=== PATIENT | female | born 1945 | race Caucasian/White ===

== ENCOUNTER 2016-08-11 11:35 | Observation (INO) | payer MEDICARE, OTHER ==
--- NOTE | 2016-08-11 12:33 | ER Document Report ---
ED Medical Screen (RME) - General Chief Complaint: Numbness of Face Stated Complaint: RIGHT SIDE NUMBNESS Mode of Arrival: Ambulatory Information source: Patient Notes: This is a 71-year-old female with a history of hypertension who was sent to the ER by her primary care physician (Dr. Sage) for concern of TIA. Patient states that at 7:30 this morning while walking down the hallway in her house, she developed sudden onset of tingling to the right side of her face, her right upper extremity, in her right lower extremity. She also felt that the right side of her face felt heavy and numb. She had no headache, chest pain. She initially presented to her primary care office and then was referred to the ER. She states that her symptoms have completely resolved. She thinks they lasted for 1-2 hours. At this point she is back to her baseline. No prior history of TIA/CVA. In triage she is alert and oriented 4. She has no facial asymmetry. 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 She has good finger to nose and normal gait. I have greeted and performed a rapid initial assessment of this patient. A comprehensive ED assessment and evaluation of the patient, analysis of test results and completion of the medical decision making process will be conducted by additional ED providers. TRAVEL OUTSIDE OF THE [place] IN LAST 30 DAYS: No - Related Data Allergies/Adverse Reactions: codeine [Codeine] Allergy (Severe, Verified 10/14/10 10:39) Penicillins Allergy (Severe, Verified 10/14/10 10:38) Sulfa (Sulfonamide Antibiotics) Allergy (Severe, Verified 10/14/10 10:39) Home Medications: Current Home Medications Cetirizine HCl [Zyrtec 10 mg Tablet] 10 mg PO QHS 08/11/16 [History] Glimepiride [Amaryl 1 mg Tablet] 1 mg PO DAILY 08/11/16 [History] Lisinopril/Hydrochlorothiazide [Lisinopril-Hctz 20-12.5 mg Tab] 1 each PO DAILY 08/11/16 [History] Past Medical History - Past Medical History Cardiac Medical History: Reports: Hx Hypertension Denies: Hx Heart Attack Pulmonary Medical History: Denies: Hx Asthma Neurological Medical History: Denies: Hx Cerebrovascular Accident, Hx Seizures Renal/ Medical History: Denies: Hx Peritoneal Dialysis GI Medical History: Denies: Hx Hepatitis, Hx Hiatal Hernia, Hx Ulcer Infectious Medical History: Denies: Hx Hepatitis Past Surgical History: Reports: Hx Hysterectomy. Denies: Hx Mastectomy, Hx Open Heart Surgery, Hx Pacemaker Physical Exam - Vital signs Vitals: Temp Pulse Resp BP Pulse Ox 98.2 F 73 16 185/82 H 99 08/11/16 11:38 08/11/16 11:38 08/11/16 11:38 08/11/16 11:38 08/11/16 11:38 Course - Vital Signs Vital signs: Temp Pulse Resp BP Pulse Ox 98.2 F 74 18 152/74 H 99 08/11/16 11:38 08/11/16 18:00 08/11/16 18:01 08/11/16 18:01 08/11/16 18:01 - Laboratory Result Diagrams: 08/11/16 12:35 08/11/16 12:35 Laboratory results interpreted by me: 08/11/16 08/11/16 12:35 15:00 Sodium 146.9 H Calcium 10.8 H Creatine Kinase 149 H Total Protein 8.3 H Urine Ketones TRACE H Doctor's Discharge - Discharge Clinical Impression: Transient ischemic attack Condition: Stable Disposition: ADMITTED INPATIENT
--- NOTE | 2016-08-11 12:55 | ER Document Report ---
ED Neuro Symptoms/Deficit - General Time seen by provider: 12:45 Mode of Arrival: Ambulatory Information source: Patient TRAVEL OUTSIDE OF THE [place] IN LAST 30 DAYS: No - HPI Patient complains to provider of: Weakness, Other - numbness Onset: This morning - see HPI note Awoke with symptoms: No Duration: Better Baseline Cognitive: Alert, oriented X 3 Baseline Gait: Walks w/o assistance New weakness: RUE, RLE, R facial Similar symptoms previously: No Recently seen / treated by doctor: No <DALY TALBOT - Last Filed: 08/11/16 13:03> <BOGDAN LANDA - Last Filed: 08/11/16 14:55> - General Chief Complaint: Numbness of Face Stated Complaint: RIGHT SIDE NUMBNESS Notes: Patient is a 71 year old female presenting to the emergency department for numbness and weakness to her right side. Patient states she was walking in the hallway this morning around 7:30 when she started feeling very weak and numb. Patient states her right side of her body including her face, arm, and leg all felt weak and numb. Patient states this lasted for about 5-10 minutes and then slightly eased off. Patient states it was still faintly present for 1-[address] Sage in the office today around 9:30 and he recommended she go to the emergency department for a work up. Patient states that she has had previous numbness in her fingers and toes bilaterally from neuropathy but this numbness was different. Patient is allergic to codeine, penicillins, and sulfa drugs. Patient states her numbness and symptoms are gone completely now. Patient has a history of type 2 diabetes mellitus, hypertension, arthritis, hypercholesterolemia, and neuropathy. (DALY TALBOT) The patient is not a TPA candidate, as her symptoms were several hours ago, and have resolved completely. (BOGDAN LANDA) - Related Data Allergies/Adverse Reactions: codeine [Codeine] Allergy (Severe, Verified 10/14/10 10:39) Penicillins Allergy (Severe, Verified 10/14/10 10:38) Sulfa (Sulfonamide Antibiotics) Allergy (Severe, Verified 10/14/10 10:39) Past Medical History - General Information source: Patient - Social History Smoking Status: Unknown if Ever Smoked Family History: None - Past Medical History Cardiac Medical History: Reports: Hx Hypertension Past Surgical History: Reports: Hx Hysterectomy <DALY TALBOT - Last Filed: 08/11/16 13:03> Review of Systems - Review of Systems Constitutional: No symptoms reported EENT: No symptoms reported Cardiovascular: No symptoms reported Respiratory: No symptoms reported Gastrointestinal: No symptoms reported Genitourinary: No symptoms reported Female Genitourinary: No symptoms reported Musculoskeletal: No symptoms reported Skin: No symptoms reported Hematologic/Lymphatic: No symptoms reported Neurological/Psychological: See HPI -: Yes All other systems reviewed and negative <DALY TALBOT - Last Filed: 08/11/16 13:03> Physical Exam - Vital signs Interpretation: Hypertensive - General General appearance: Appears well, Alert In distress: Mild - HEENT Head: Normocephalic, Atraumatic Eyes: Normal Pupils: PERRL Mucous membranes: Moist Neck: No: Carotid bruit - Respiratory Respiratory status: No respiratory distress Chest status: Nontender Breath sounds: Normal Chest palpation: Normal - Cardiovascular Rhythm: Regular Heart sounds: Normal auscultation Murmur: No - Abdominal Inspection: Normal Distension: No distension Bowel sounds: Normal Tenderness: Nontender Organomegaly: No organomegaly - Back Back: Normal, Nontender - Extremities General upper extremity: Normal inspection, Normal ROM, Normal strength General lower extremity: Normal inspection, Normal ROM, Normal strength - Neurological Neuro grossly intact: Yes Cognition: Normal - no focal weakness Orientation: AAOx4 Curtis Coma Scale Eye Opening: Spontaneous [place] Coma Scale Verbal: Oriented [place] Coma Scale Motor: Obeys Commands [place] Coma Scale Total: 15 Speech: Normal Additional motor exam normals: Equal frame opener Sensory: Normal - Psychological Associated symptoms: Normal affect, Normal mood - Skin Skin Temperature: Warm Skin Moisture: Dry <DALY TALBOT - Last Filed: 08/11/16 13:03> <BOGDAN LANDA - Last Filed: 08/11/16 14:55> - Vital signs Vitals: Temp Pulse Resp BP Pulse Ox 98.2 F 73 16 185/82 H 99 08/11/16 11:38 08/11/16 11:38 08/11/16 11:38 08/11/16 11:38 08/11/16 11:38 Course - Laboratory Result Diagrams: 08/11/16 12:35 08/11/16 12:35 <DALY TALBOT - Last Filed: 08/11/16 13:03> - Laboratory Result Diagrams: 08/11/16 12:35 08/11/16 12:35 - Diagnostic Test Radiology reviewed: Image reviewed, Reports reviewed - Chest x-ray and CT of the brain are unremarkable - EKG Interpretation by Me EKG shows normal: Sinus rhythm, [place], Intervals, ST-T Waves. abnormal: QRS Complexes Rate: Normal - 67 Rhythm: NSR [place]/QRS: RBBB, LPHB/LPFB When compared to previous EKG there are: Previous EKG unavailable - Consults Dr. Alexandra Time consulted: 14:45 Consulted provider: will come to ER <BOGDAN LANDA - Last Filed: 08/11/16 14:55> - Vital Signs Vital signs: Temp Pulse Resp BP Pulse Ox 98.2 F 72 20 166/65 H 99 08/11/16 11:38 08/11/16 14:52 08/11/16 14:52 08/11/16 14:52 08/11/16 14:52 - Laboratory Laboratory results interpreted by me: 08/11/16 12:35 Sodium 146.9 H Calcium 10.8 H Creatine Kinase 149 H Total Protein 8.3 H Discharge <DALY TALBOT - Last Filed: 08/11/16 13:03> - Discharge Admitting Provider: Hospitalist Unit Admitted: IMCU <BOGDAN LANDA - Last Filed: 08/11/16 14:55> - Discharge Clinical Impression: Transient ischemic attack Qualifiers: Transient cerebral ischemia type: unspecified Qualified Code(s): G45.9 - Transient cerebral ischemic attack, unspecified Condition: Stable Disposition: ADMITTED INPATIENT Referrals: MEGAN SAGE MD [Primary Care Provider] - Follow up as needed Scribe Attestation: 08/11/16 14:55 I personally performed the services described in the documentation, reviewed and edited the documentation which was dictated to the scribe in my presence, and it accurately records my words and actions. (BOGDAN LANDA) Scribe Documentation - Scribe Written by Scribe:: Daly Talbot 08/11/16 13:40 acting as scribe for :: Robert <DALY TALBOT - Last Filed: 08/11/16 13:03>
[2016-08-11 12:59] LABS: ABSOLUTE EOSINOPHILS # (AUTO) 0.1 10^3/uL (0.0-0.6); ABSOLUTE LYMPHOCYTES (AUTO) 1.9 10^3/uL (0.5-4.7); ABSOLUTE MONOCYTES (AUTO) 0.5 10^3/uL (0.1-1.4); ABSOLUTE NEUT (AUTO) 3.5 10^3/uL (1.7-8.2); BASOPHILS % (AUTO) 0.7 % (0-2); EOSINOPHILS % (AUTO) 0.8 % (0-6); HEMATOCRIT 39.9 % (36.0-47.0); HEMOGLOBIN 13.5 g/dL (12.0-15.5); HGB HCT DIFFERENCE 0.6; LYMPHOCYTES % (AUTO) 31.7 % (13-45); MEAN CORPUSCULAR HGB CONC 33.7 g/dL (32.0-36.0); MEAN CORPUSCULAR VOLUME 95 fl (80-97); PROTHROMBIN TIME 12.3 SEC (11.4-15.4); RED BLOOD COUNT 4.21 10^6/uL (3.72-5.28); SEGMENTED NEUTROPHILS % (AUTO) 57.8 % (42-78); WHITE BLOOD COUNT 6.1 10^3/uL (4.0-10.5)
[2016-08-11 13:00] LABS: PARTIAL THROMBOPLASTIN TIME 32.4 SEC (23.5-35.8)
[2016-08-11 13:23] LABS: ALANINE AMINOTRANSFERASE 39 U/L (9-52); ALBUMIN 4.5 g/dL (3.5-5.0); ALKALINE PHOSPHATASE 88 U/L (38-126); ANION GAP 13 (5-19); ASPARTATE AMINO TRANSFERASE 28 U/L (14-36); BILIRUBIN,DIRECT 0.4 mg/dL (0.0-0.4); BILIRUBIN,TOTAL 0.5 mg/dL (0.2-1.3); BLOOD UREA NITROGEN 18 mg/dL (7-20); CALCIUM 10.8 mg/dL (8.4-10.2); CARBON DIOXIDE 29 mmol/L (22-30); CHLORIDE 105 mmol/L (98-107); CREATINE KINASE 149 U/L (30-135); CREATININE RESULT 0.65 mg/dL (0.52-1.25); GLUCOSE 96 mg/dL (75-110); POTASSIUM 3.9 mmol/L (3.6-5.0); SODIUM 146.9 mmol/L (137-145); TOTAL PROTEIN 8.3 g/dL (6.3-8.2)
[2016-08-11 13:35] LABS: CREATINE KINASE MB 1.53 ng/mL (<4.55)
[2016-08-11 13:38] LABS: TROPONIN I < 0.012 ng/mL
[2016-08-11 15:11] LABS: APPEARANCE,URINE CLEAR; BILIRUBIN,URINE NEGATIVE (NEGATIVE); GLUCOSE, URINE NEGATIVE (NEGATIVE); KETONES,URINE TRACE mg/dL (NEGATIVE); LEUKOCYTE ESTERASE,URINE NEGATIVE (NEGATIVE); NITRITE,URINE NEGATIVE (NEGATIVE); PROTEIN,URINE NEGATIVE (NEGATIVE); URINE SPECIFIC GRAVITY 1.005; UROBILINOGEN,URINE NEGATIVE mg/dL (<2.0)
[2016-08-11] MEDS ORDERED: ENOXAPARIN SODIUM INJ 40 MG/0.4 ML DISP.SYRIN SUBCUT ONE (19:30)
[2016-08-11] MEDS ORDERED: DIAZEPAM 5 MG TABLET PO ONE (20:15)
--- NOTE | 2016-08-11 21:14 | EKG REPORT ---
SEVERITY:- ABNORMAL ECG - SINUS RHYTHM RBBB AND LPFB : Confirmed by: Cecily Kim 11-Aug-2016 21:14:25
[2016-08-11] MEDS ORDERED: ATORVASTATIN CALCIUM 80 MG TABLET PO ONE (22:00)
[2016-08-11] MEDS ORDERED: ASPIRIN 81 MG TABLET, CHEWABLE PO ONE (22:00)
[2016-08-11] MEDS ORDERED: CETIRIZINE 10 MG TABLET PO SCH (22:00)
[2016-08-12 04:41] LABS: CHOLESTEROL 153.96 mg/dL (0-200); Direct HDL 47 mg/dL (>40); TRIGLYCERIDES 175 mg/dL (<150)
[2016-08-12 04:51] LABS: DIRECT LDL 69 mg/dL (<100)
--- NOTE | 2016-08-12 07:58 | PDOC H&P ---
History of Present Illness Admission Date/PCP: 08/11/16 17:55 MEGAN VENCES MD Patient complains of: numbness tingling right side body History of Present Illness: KALYN DUBON is a 71 year old female With a known history of hypertension diabetes hyperlipidemia presented to the ED with paresthesias right side of face, right upper and right lower extremities The episode lasted about an hour and resolved Patient presented to the ED asymptomatic She was subsequently admitted with the diagnosis of TIA for further evaluation and care Past Medical History Cardiac Medical History: Reports: Hyperlipidema, Hypertension Denies: Myocardial Infarction Pulmonary Medical History: Denies: Asthma Neurological Medical History: Denies: Seizures Endocrine Medical History: Reports: Diabetes Mellitus Type 2 GI Medical History: Denies: Hepatitis, Hiatal Hernia Hematology: Reports: Anemia Denies: Sickle Cell Disease Past Surgical History Past Surgical History: Reports: Hysterectomy Denies: Amputation, Mastectomy, Pacemaker Social History Smoking Status: Never Smoker Frequency of Alcohol Use: None Hx Recreational Drug Use: No Drugs: None Hx Prescription Drug Abuse: No - Advance Directive Resuscitation Status: Full Code Surrogate healthcare decision maker:: Family History Family History: None Parental Family History Reviewed: Yes Children Family History Reviewed: Yes Sibling(s) Family History Reviewed.: Yes Medication/Allergy Home Medications: Meloxicam [Mobic 7.5 Mg Tablet] 7.5 mg PO DAILY 08/17/11 Simvastatin [Zocor] 20 mg PO QHS 08/17/11 Cetirizine HCl [Zyrtec 10 mg Tablet] 10 mg PO QHS 08/11/16 Glimepiride [Amaryl 1 mg Tablet] 1 mg PO DAILY 08/11/16 Lisinopril/Hydrochlorothiazide [Lisinopril-Hctz 20-12.5 mg Tab] 1 each PO DAILY 08/11/16 Allergies/Adverse Reactions: codeine [Codeine] Allergy (Severe, Verified 10/14/10 10:39) Penicillins Allergy (Severe, Verified 10/14/10 10:38) Sulfa (Sulfonamide Antibiotics) Allergy (Severe, Verified 10/14/10 10:39) Review of Systems Constitutional: ABSENT: chills, fever(s), headache(s), weight gain, weight loss Eyes: ABSENT: visual disturbances Ears: ABSENT: hearing changes Cardiovascular: ABSENT: chest pain, dyspnea on exertion, edema, orthropnea, palpitations Respiratory: ABSENT: cough, hemoptysis Gastrointestinal: ABSENT: abdominal pain, constipation, diarrhea, hematemesis, hematochezia, nausea, vomiting Genitourinary: ABSENT: dysuria, hematuria Musculoskeletal: ABSENT: joint swelling Integumentary: ABSENT: rash, wounds Neurological: PRESENT: as per HPI, numbness, paresthesias, tingling. ABSENT: abnormal gait, abnormal speech, confusion, dizziness, focal weakness, syncope Psychiatric: ABSENT: anxiety, depression, homidical ideation, suicidal ideation Endocrine: ABSENT: cold intolerance, heat intolerance, polydipsia, polyuria Hematologic/Lymphatic: ABSENT: easy bleeding, easy bruising Physical Exam Vital Signs: Temp Pulse Resp BP Pulse Ox 97.9 F 83 16 122/70 93 08/12/16 03:27 08/12/16 04:00 08/12/16 04:00 08/12/16 04:00 08/12/16 04:00 Intake & Output 08/11/16 08/12/16 08/13/16 00:59 00:59 00:59 Intake Total 200 25 Balance 200 25 Weight 58.4 kg 58.4 kg General appearance: PRESENT: no acute distress, well-developed, well-nourished Head exam: PRESENT: atraumatic, normocephalic Eye exam: PRESENT: conjunctiva pink, EOMI, PERRLA. ABSENT: scleral icterus Ear exam: PRESENT: normal external ear exam Mouth exam: PRESENT: moist, tongue midline Neck exam: ABSENT: carotid bruit, JVD, lymphadenopathy, thyromegaly Respiratory exam: PRESENT: clear to auscultation joyce. ABSENT: rales, rhonchi, wheezes Cardiovascular exam: PRESENT: RRR. ABSENT: diastolic murmur, rubs, systolic murmur Pulses: PRESENT: normal dorsalis pedis pul Vascular exam: PRESENT: normal capillary refill GI/Abdominal exam: PRESENT: normal bowel sounds, soft. ABSENT: distended, guarding, mass, organolmegaly, rebound, tenderness Rectal exam: PRESENT: deferred Extremities exam: PRESENT: full ROM. ABSENT: calf tenderness, clubbing, pedal edema Neurological exam: PRESENT: alert, awake, oriented to person, oriented to place , oriented to time, oriented to situation, CN II-XII grossly intact. ABSENT: motor sensory deficit Psychiatric exam: PRESENT: appropriate affect, normal mood. ABSENT: homicidal ideation, suicidal ideation Skin exam: PRESENT: dry, intact, warm. ABSENT: cyanosis, rash Results Laboratory Results: 08/12/16 08/12/16 04:01 04:01 Triglycerides 175 H Cholesterol 153.96 LDL Cholesterol Direct 69 VLDL Cholesterol 35.0 H HDL Cholesterol 47 TSH 3.35 Labs- All tests 24 hr 08/11/16 08/11/16 08/11/16 12:35 12:35 12:35 WBC 6.1 RBC 4.21 Hgb 13.5 Hct 39.9 MCV 95 MCH 32.0 MCHC 33.7 RDW 13.0 Plt Count 243 Seg Neutrophils % 57.8 Lymphocytes % 31.7 Monocytes % 9.0 Eosinophils % 0.8 Basophils % 0.7 Absolute Neutrophils 3.5 Absolute Lymphocytes 1.9 Absolute Monocytes 0.5 Absolute Eosinophils 0.1 Absolute Basophils 0.0 PT 12.3 INR 0.89 APTT 32.4 Sodium 146.9 H Potassium 3.9 Chloride 105 Carbon Dioxide 29 Anion Gap 13 BUN 18 Creatinine 0.65 Est GFR ( Amer) > 60 Est GFR (Non-Af Amer) > 60 Glucose 96 Hemoglobin A1c % Calcium 10.8 H Total Bilirubin 0.5 Direct Bilirubin 0.4 Indirect Bilirubin Not Reportable Neonat Total Bilirubin Not Reportable AST 28 ALT 39 Alkaline Phosphatase 88 Creatine Kinase 149 H CK-MB (CK-2) Troponin I Total Protein 8.3 H Albumin 4.5 Triglycerides Cholesterol LDL Cholesterol Direct VLDL Cholesterol HDL Cholesterol TSH Urine Color Urine Appearance Urine pH Ur Specific [place] Urine Protein Urine Glucose (UA) Urine Ketones Urine Blood Urine Nitrite Urine Bilirubin Urine Urobilinogen Ur Leukocyte Esterase Urine WBC (Auto) Squamous Epi Cells Auto Urine Mucus (Auto) Urine Ascorbic Acid 08/11/16 08/11/16 08/12/16 12:35 15:00 04:01 WBC RBC Hgb Hct MCV MCH MCHC RDW Plt Count Seg Neutrophils % Lymphocytes % Monocytes % Eosinophils % Basophils % Absolute Neutrophils Absolute Lymphocytes Absolute Monocytes Absolute Eosinophils Absolute Basophils PT INR APTT Sodium Potassium Chloride Carbon Dioxide Anion Gap BUN Creatinine Est GFR ( Amer) Est GFR (Non-Af Amer) Glucose Hemoglobin A1c % 5.3 Calcium Total Bilirubin Direct Bilirubin Indirect Bilirubin Neonat Total Bilirubin AST ALT Alkaline Phosphatase Creatine Kinase CK-MB (CK-2) 1.53 Troponin I < 0.012 Total Protein Albumin Triglycerides Cholesterol LDL Cholesterol Direct VLDL Cholesterol HDL Cholesterol TSH Urine Color STRAW Urine Appearance CLEAR Urine pH 7.0 Ur Specific [place] 1.005 Urine Protein NEGATIVE Urine Glucose (UA) NEGATIVE Urine Ketones TRACE H Urine Blood NEGATIVE Urine Nitrite NEGATIVE Urine Bilirubin NEGATIVE Urine Urobilinogen NEGATIVE Ur Leukocyte Esterase NEGATIVE Urine WBC (Auto) 1 Squamous Epi Cells Auto <1 Urine Mucus (Auto) RARE Urine Ascorbic Acid NEGATIVE 08/12/16 08/12/16 04:01 04:01 WBC RBC Hgb Hct MCV MCH MCHC RDW Plt Count Seg Neutrophils % Lymphocytes % Monocytes % Eosinophils % Basophils % Absolute Neutrophils Absolute Lymphocytes Absolute Monocytes Absolute Eosinophils Absolute Basophils PT INR APTT Sodium Potassium Chloride Carbon Dioxide Anion Gap BUN Creatinine Est GFR ( Amer) Est GFR (Non-Af Amer) Glucose Hemoglobin A1c % Calcium Total Bilirubin Direct Bilirubin Indirect Bilirubin Neonat Total Bilirubin AST ALT Alkaline Phosphatase Creatine Kinase CK-MB (CK-2) Troponin I Total Protein Albumin Triglycerides 175 H Cholesterol 153.96 LDL Cholesterol Direct 69 VLDL Cholesterol 35.0 H HDL Cholesterol 47 TSH 3.35 Urine Color Urine Appearance Urine pH Ur Specific [place] Urine Protein Urine Glucose (UA) Urine Ketones Urine Blood Urine Nitrite Urine Bilirubin Urine Urobilinogen Ur Leukocyte Esterase Urine WBC (Auto) Squamous Epi Cells Auto Urine Mucus (Auto) Urine Ascorbic Acid EKG Comments: NSR RBBB LPFB Impressions: Chest X-Ray 08/11/16 12:28 IMPRESSION: NO ACUTE RADIOGRAPHIC FINDING IN THE CHEST. Head CT 08/11/16 12:28 IMPRESSION: NORMAL BRAIN CT WITHOUT CONTRAST. Head MRI 08/11/16 17:58 IMPRESSION: Negative for acute or sub-acute infarction. Assessment & Plan - Diagnosis (1) Hypertension Qualifiers: Hypertension type: essential hypertension Qualified Code(s): I10 - Essential (primary) hypertension Is this a current diagnosis for this admission?: Yes (2) Hyperlipidemia Qualifiers: Hyperlipidemia type: unspecified Qualified Code(s): E78.5 - Hyperlipidemia, unspecified Is this a current diagnosis for this admission?: Yes (3) Transient ischemic attack Qualifiers: Transient cerebral ischemia type: unspecified Qualified Code(s): G45.9 - Transient cerebral ischemic attack, unspecified Is this a current diagnosis for this admission?: Yes - Time Time Spent with patient: We will admit the patient for observation to [facility] An MRI of the brain will be done tonight We will complete the workup with carotid ultrasound and echocardiogram Patient will be monitored The patient aspirin and Lipitor She will likely be discharged in a.m. Time Spent: 50 to 70 Minutes
[2016-08-12] MEDS ORDERED: ENOXAPARIN SODIUM INJ 40 MG/0.4 ML DISP.SYRIN SUBCUT SCH (08:00)
[2016-08-12] MEDS ORDERED: GLIMEPIRIDE 1 MG TABLET PO SCH (10:00)
[2016-08-12 11:46] VITALS: BP 152/72
--- NOTE | 2016-08-12 14:38 | PDOC DISCHARGE SUMMARY ---
General - Admit/Disc Date/PCP Admission Date/Primary Care Provider: 08/11/16 17:55 MEGAN VENCES MD Discharge Date: 08/12/16 - Discharge Diagnosis (1) Hypertension Is this a current diagnosis for this admission?: Yes (2) Hyperlipidemia Is this a current diagnosis for this admission?: Yes (3) Transient ischemic attack Is this a current diagnosis for this admission?: Yes - Additional Information Resuscitation Status: Full Code Discharge Activity: Activity As Tolerated Home Medications: Meloxicam [Mobic 7.5 mg Tablet] 7.5 mg PO DAILY 08/17/11 Simvastatin [Zocor 20 mg Tablet] 20 mg PO QHS 08/17/11 Cetirizine HCl [Zyrtec 10 mg Tablet] 10 mg PO QHS 08/11/16 Glimepiride [Amaryl 1 mg Tablet] 1 mg PO DAILY 08/11/16 Lisinopril/Hydrochlorothiazide [Lisinopril-Hctz 20-12.5 mg Tab] 1 each PO DAILY 08/11/16 Aspirin [Ecotrin 81 mg EC Tablet] 81 mg PO DAILY #30 tabec 08/12/16 History of Present Illness Patient complains of: parethesias History of Present Illness: KALYN DUBON is a 71 year old female With a known history of hypertension diabetes hyperlipidemia presented to the ED with paresthesias right side of face, right upper and right lower extremities The episode lasted about an hour and resolved Patient presented to the ED asymptomatic She was subsequently admitted with the diagnosis of TIA for further evaluation and care Hospital Course Hospital Course: Patient was admitted with the diagnosis of TIA and-like episode she was a monitored in the telemetry unit did not have any cord cardiac arrhythmia Cardiac enzymes were negative Workup including CT brain , MRI brain, carotid ultrasound was essentially negative An echocardiogram was performed results are not available at time of discharge Patient remained totally asymptomatic She was discharged on Ecotrin 81 mg daily to be added to her prior medications Physical Exam Vital Signs: Temp Pulse Resp BP Pulse Ox 97.8 F 73 16 152/72 H 98 08/12/16 11:07 08/12/16 11:07 08/12/16 11:07 08/12/16 11:07 08/12/16 11:07 Intake & Output 08/11/16 08/12/16 08/13/16 00:59 00:59 00:59 Intake Total 200 33 Balance 200 33 Weight 58.4 kg 58.4 kg General appearance: PRESENT: no acute distress, well-developed, well-nourished Head exam: PRESENT: atraumatic, normocephalic Eye exam: PRESENT: conjunctiva pink, EOMI, PERRLA. ABSENT: scleral icterus Ear exam: PRESENT: normal external ear exam Mouth exam: PRESENT: moist, tongue midline Neck exam: ABSENT: carotid bruit, JVD, lymphadenopathy, thyromegaly Respiratory exam: PRESENT: clear to auscultation joyce. ABSENT: rales, rhonchi, wheezes Cardiovascular exam: PRESENT: RRR. ABSENT: diastolic murmur, rubs, systolic murmur Pulses: PRESENT: normal dorsalis pedis pul Vascular exam: PRESENT: normal capillary refill GI/Abdominal exam: PRESENT: normal bowel sounds, soft. ABSENT: distended, guarding, mass, organolmegaly, rebound, tenderness Rectal exam: PRESENT: deferred Extremities exam: PRESENT: full ROM. ABSENT: calf tenderness, clubbing, pedal edema Neurological exam: PRESENT: alert, awake, oriented to person, oriented to place , oriented to time, oriented to situation, CN II-XII grossly intact. ABSENT: motor sensory deficit Psychiatric exam: PRESENT: appropriate affect, normal mood. ABSENT: homicidal ideation, suicidal ideation Skin exam: PRESENT: dry, intact, warm. ABSENT: cyanosis, rash Results Laboratory Results: 08/12/16 08/12/16 04:01 04:01 Triglycerides 175 H Cholesterol 153.96 LDL Cholesterol Direct 69 VLDL Cholesterol 35.0 H HDL Cholesterol 47 TSH 3.35 08/11/16 12:35 08/11/16 12:35 MCV 95 fl (80-97) 08/11/16 12:35 MCH 32.0 pg (27.0-33.4) 08/11/16 12:35 MCHC 33.7 g/dL (32.0-36.0) 08/11/16 12:35 RDW 13.0 % (11.5-14.0) 08/11/16 12:35 Seg Neutrophils % 57.8 % (42-78) 08/11/16 12:35 Lymphocytes % 31.7 % (13-45) 08/11/16 12:35 Monocytes % 9.0 % (3-13) 08/11/16 12:35 Eosinophils % 0.8 % (0-6) 08/11/16 12:35 Basophils % 0.7 % (0-2) 08/11/16 12:35 Absolute Neutrophils 3.5 10^3/uL (1.7-8.2) 08/11/16 12:35 Absolute Lymphocytes 1.9 10^3/uL (0.5-4.7) 08/11/16 12:35 Absolute Monocytes 0.5 10^3/uL (0.1-1.4) 08/11/16 12:35 Absolute Eosinophils 0.1 10^3/uL (0.0-0.6) 08/11/16 12:35 Absolute Basophils 0.0 10^3/uL (0.0-0.2) 08/11/16 12:35 Chloride 105 mmol/L (98-107) 08/11/16 12:35 Carbon Dioxide 29 mmol/L (22-30) 08/11/16 12:35 Anion Gap 13 (5-19) 08/11/16 12:35 Est GFR ( Amer) > 60 (>60) 08/11/16 12:35 Est GFR (Non-Af Amer) > 60 (>60) 08/11/16 12:35 Glucose 96 mg/dL (75-110) 08/11/16 12:35 Calcium 10.8 mg/dL (8.4-10.2) H 08/11/16 12:35 Total Bilirubin 0.5 mg/dL (0.2-1.3) 08/11/16 12:35 AST 28 U/L (14-36) 08/11/16 12:35 ALT 39 U/L (9-52) 08/11/16 12:35 Alkaline Phosphatase 88 U/L (38-126) 08/11/16 12:35 Total Protein 8.3 g/dL (6.3-8.2) H 08/11/16 12:35 Albumin 4.5 g/dL (3.5-5.0) 08/11/16 12:35 Triglycerides 175 mg/dL (<150) H 08/12/16 04:01 Cholesterol 153.96 mg/dL (0-200) 08/12/16 04:01 LDL Cholesterol Direct 69 mg/dL (<100) 08/12/16 04:01 VLDL Cholesterol 35.0 mg/dL (10-31) H 08/12/16 04:01 HDL Cholesterol 47 mg/dL (>40) 08/12/16 04:01 TSH 3.35 uIU/mL (0.47-4.68) 08/12/16 04:01 Urine Color STRAW 08/11/16 15:00 Urine Appearance CLEAR 08/11/16 15:00 Urine pH 7.0 (5.0-9.0) 08/11/16 15:00 Ur Specific [place] 1.005 08/11/16 15:00 Urine Protein NEGATIVE mg/dL (NEGATIVE) 08/11/16 15:00 Urine Glucose (UA) NEGATIVE mg/dL (NEGATIVE) 08/11/16 15:00 Urine Ketones TRACE mg/dL (NEGATIVE) H 08/11/16 15:00 Urine Blood NEGATIVE (NEGATIVE) 08/11/16 15:00 Urine Nitrite NEGATIVE (NEGATIVE) 08/11/16 15:00 Ur Leukocyte Esterase NEGATIVE (NEGATIVE) 08/11/16 15:00 Urine WBC (Auto) 1 /HPF 08/11/16 15:00 08/11/16 08/11/16 12:35 12:35 Creatine Kinase 149 H CK-MB (CK-2) 1.53 Troponin I < 0.012 EKG Comments: Sinus rhythm Right bundle branch block Left posterior fascicular block Impressions: Chest X-Ray 08/11/16 12:28 IMPRESSION: NO ACUTE RADIOGRAPHIC FINDING IN THE CHEST. Head CT 08/11/16 12:28 IMPRESSION: NORMAL BRAIN CT WITHOUT CONTRAST. Head MRI 08/11/16 17:58 IMPRESSION: Negative for acute or sub-acute infarction. Carotid Doppler Study 08/12/16 00:00 IMPRESSION: NO HEMODYNAMICALLY SIGNIFICANT STENOSIS. Plan Discharge Plan: Patient was discharged home to follow-up with her primary care physician Time Spent: Less than 30 Minutes
--- NOTE | 2016-08-12 18:19 | XCELERA REPORT ---
[address] [address] Transthoracic Echocardiogram Report Name: KALYN DUBON Age: 71 yrs Gender: Female : 1945 Patient Status: Inpatient Patient Location: [id number]\S\315\S\A Study Date: 08/12/2016 09:47 AM Height: 60 in Weight: 128 lb BSA: 1.5 m2 Procedure: A two-dimensional transthoracic echocardiogram with color flow and Doppler was performed. The study was technically limited with all images being suboptimal in quality. The study was technically difficult with many images being suboptimal in quality. Reason For Study: TIA History: TIA. Ordering Physician: LAKISHA GOMES Performed By: Sofía Stovall Interpretation Summary There is no obvious cardiac source of embolus noted on this transthoracic echocardiogram. Follow-up with a LETI is suggested if cardiac source is still suspected. The left ventricle is normal in size. There is normal left ventricular wall thickness. LV EF is > than 60% Left ventricular systolic function is normal. Doppler measurements suggest impaired left ventricular relaxation, which is associated with grade I/IV or mild diastolic dysfunction The left ventricular wall motion is normal. There is no thrombus. The right ventricle is not well visualized secondary to technical limitations The right atrium is normal. The left atrial size is normal. The interatrial septum is intact with no evidence for an atrial septal defect. There is no evidence of mitral valve prolapse. There is no vegetation seen on the mitral valve. There is no mitral valve stenosis. There is a trace amount of mitral regurgitation There is no aortic valve stenosis There is no LVOT obstruction. No aortic regurgitation is present. There is no tricuspid stenosis. There is a trace amount of tricuspid regurgitation Right ventricular systolic pressure is normal. RVSP is 22mm of Hg , with RA mean of 5 There is no pericardial effusion. There is no obvious cardiac source of embolus noted on this transthoracic echocardiogram. Follow-up with a LETI is suggested if cardiac source is still suspected MMode/2D Measurements \T\ Calculations RVDd: 2.2 cm LVIDd: 3.7 cm FS: 36.0 % Ao root diam: 1.9 cm IVSd: 0.92 cm LVIDs: 2.4 cm EDV(Teich): 59.2 ml LVPWd: 0.78 cm ESV(Teich): 19.9 ml Ao root area: 2.9 cm2 EF(Teich): 66.4 % LA dimension: 2.7 cm Doppler Measurements \T\ Calculations MV E max jg: MV P1/2t max jg: Ao V2 max: LV V1 max P.5 cm/sec 75.5 cm/sec 112.5 cm/sec 2.9 mmHg MV A max jg: MV P1/2t: 75.2 msec Ao max PG: LV V1 max: 99.7 cm/sec 5.1 mmHg 85.4 cm/sec MV E/A: 0.76 MVA(P1/2t): 2.9 cm2 MV dec slope: 294.0 cm/sec2 PA V2 max: TR max jg: 84.9 cm/sec 203.6 cm/sec PA max PG: TR max P.6 mmHg 2.9 mmHg Left Ventricle The left ventricle is normal in size. There is normal left ventricular wall thickness. LV EF is > than 60%. Left ventricular systolic function is normal. Doppler measurements suggest impaired left ventricular relaxation, which is associated with grade I/IV or mild diastolic dysfunction. The left ventricular wall motion is normal. There is no thrombus. There is no ventricular septal defect visualized. Right Ventricle The right ventricle is not well visualized secondary to technical limitations. Atria The right atrium is normal. The left atrial size is normal. The interatrial septum is intact with no evidence for an atrial septal defect. Mitral Valve There is mild mitral annular calcification. There is no evidence of mitral valve prolapse. There is no vegetation seen on the mitral valve. There is no mitral valve stenosis. There is a trace amount of mitral regurgitation. Aortic Valve There is no aortic valvular vegetation. There is no aortic valve stenosis. There is no LVOT obstruction. No aortic regurgitation is present. Tricuspid Valve There is no tricuspid stenosis. There is a trace amount of tricuspid regurgitation. Right ventricular systolic pressure is normal. RVSP is 22mm of Hg , with RA mean of 5. Pulmonic Valve There is no pulmonic valvular stenosis. There is no pulmonic valvular regurgitation. Great Vessels The aortic root is normal size. Effusions There is no pericardial effusion. : LAKISHA GOMES > Jenifer Gilliland
== END 2016-08-12 19:30 | disposition home or self-care (01) ==
LOC: ER 11:35 → EH 15:55 → UNDOADMIN 15:55 → EH 17:55 → INTOOBSV 17:55 → 3W 19:58
PROVIDERS: ADMIT Emergency Medicine; ATTEND Emergency Medicine
DX: G45.9 Transient cerebral ischemic attack, unspecified (principal); I10 Essential (primary) hypertension; E78.5 Hyperlipidemia, unspecified; I45.2 Bifascicular block; E11.9 Type 2 diabetes mellitus without complications; G62.9 Polyneuropathy, unspecified; Z79.1 Long term (current) use of non-steroidal anti-inflammatories (NSAID); Z79.899 Other long term (current) drug therapy
CPT/HCPCS: 93005; 99285; 36415 ×2; 82553; 82550; 84443; 85025; 85610; 85730; 80053; 81001; 84484; 83036; 80061; 93306; 93880; 70551; 71010; 70450; 93010; A9270 ×5; J1650 ×2; G0378

== ENCOUNTER 2016-10-11 08:33 | Day surgery (SDC) | payer MEDICARE, OTHER ==
[~2016-10-11 08:33] MED LIST: PROPOFOL INJ 200 MG/20 ML VIAL IV ONE
[2016-10-11 11:47] VITALS: BP 151/72
--- NOTE | 2016-10-11 13:50 | Operative Report ---
Operative Report DATE OF SURGERY: 10/11/16 Operative Report: The risks, benefits and alternatives of the procedure including risks of bleeding, perforation requiring surgery explained to the patient detail and informed consent was obtained. Patient was taken back to the endoscopy suite and placed in the left, lateral decubital position. Timeout was called. Propofol medications administered. A rectal examination was done which did not reveal any masses, tears or fissures. An Olympus video scope was inserted into the patient's rectum. The scope was then carefully advanced all the way to the cecum. The cecum was identified by the usual anatomical landmarks of the ileocecal valve as well as the appendiceal office. Photodocumentation is obtained. The scope was then sequentially pulled back via the rest segments of the colon including the ascending colon, hepatic flexure, transverse colon, splenic flexure, descending colon and finding to the rectosigmoid portions of the colon. Retroflexion maneuver was performed. PREOPERATIVE DIAGNOSIS: Personal history of polyp. POSTOPERATIVE DIAGNOSIS: Small colon polyp removed via biopsy forceps. Mild mucosal inflammation on the right side of the colon status post biopsy. Internal hemorrhoids OPERATION: Colonoscopy with biopsy SURGEON: SHILO SOLANO ANESTHESIA: LMAC TISSUE REMOVED OR ALTERED: As described above. COMPLICATIONS: None. ESTIMATED BLOOD LOSS: None. INTRAOPERATIVE FINDINGS: As described above. PROCEDURE: Patient tolerated procedure well. No immediate postprocedure complications are noted. Patient discharged in good condition. Discharge date 10/11/2016. Discharge diet: Regular. Discharge activity: Regular. 2-3 week follow-up to discuss findings. Patient is instructed to call the office or proceed to the emergency room should there be any further problems or questions. We will wait on biopsies. 3-5 years colon surveillance depending on the pathology of the polyp.
== END 2016-10-11 11:45 | disposition home or self-care (01) ==
LOC: END 08:33
PROVIDERS: ATTEND Internal Medicine Gastroenterology
PROC: 0DBN8ZX Excision of Sigmoid Colon, Via Natural or Artificial Opening Endoscopic, Diagnostic (ICD-10-PCS; 2016-10-11)
PROC: 0DBF8ZX Excision of Right Large Intestine, Via Natural or Artificial Opening Endoscopic, Diagnostic (ICD-10-PCS; principal; 2016-10-11 11:30)
DX: K63.5 Polyp of colon (principal); K52.9 Noninfective gastroenteritis and colitis, unspecified; K64.8 Other hemorrhoids; I10 Essential (primary) hypertension; E78.2 Mixed hyperlipidemia; D64.9 Anemia, unspecified; M54.12 Radiculopathy, cervical region; Z79.899 Other long term (current) drug therapy; Z79.1 Long term (current) use of non-steroidal anti-inflammatories (NSAID); Z79.82 Long term (current) use of aspirin; Z80.0 Family history of malignant neoplasm of digestive organs
CPT/HCPCS: 45380; 82962; 88305 ×2; J2704; 810

== ENCOUNTER 2016-10-15 12:09 | Emergency (ER) | payer MEDICARE, OTHER ==
[2016-10-15] MEDS ORDERED: MECLIZINE HCL 25 MG TABLET PO ONE (12:54)
[2016-10-15] MEDS ORDERED: NORMAL SALINE 1000 ML 1,000 ML IV ONE (12:54)
[2016-10-15 13:25] LABS: ABSOLUTE EOSINOPHILS # (AUTO) 0.1 10^3/uL (0.0-0.6); ABSOLUTE LYMPHOCYTES (AUTO) 1.8 10^3/uL (0.5-4.7); ABSOLUTE MONOCYTES (AUTO) 0.5 10^3/uL (0.1-1.4); ABSOLUTE NEUT (AUTO) 3.1 10^3/uL (1.7-8.2); BASOPHILS % (AUTO) 0.5 % (0-2); EOSINOPHILS % (AUTO) 1.6 % (0-6); HEMATOCRIT 39.7 % (36.0-47.0); HEMOGLOBIN 13.3 g/dL (12.0-15.5); HGB HCT DIFFERENCE 0.2; LYMPHOCYTES % (AUTO) 33.2 % (13-45); MEAN CORPUSCULAR HEMOGLOBIN 32.1 pg (27.0-33.4); MEAN CORPUSCULAR HGB CONC 33.4 g/dL (32.0-36.0); MEAN CORPUSCULAR VOLUME 96 fl (80-97); MONOCYTES % (AUTO) 8.6 % (3-13); RED BLOOD COUNT 4.15 10^6/uL (3.72-5.28); SEGMENTED NEUTROPHILS % (AUTO) 56.1 % (42-78); WHITE BLOOD COUNT 5.5 10^3/uL (4.0-10.5)
[2016-10-15 13:32] LABS: PROTHROMBIN TIME 12.1 SEC (11.4-15.4)
[2016-10-15 13:34] LABS: ALANINE AMINOTRANSFERASE 33 U/L (9-52); ALBUMIN 4.4 g/dL (3.5-5.0); ALKALINE PHOSPHATASE 96 U/L (38-126); ANION GAP 11 (5-19); ASPARTATE AMINO TRANSFERASE 36 U/L (14-36); BILIRUBIN,DIRECT 0.4 mg/dL (0.0-0.4); BILIRUBIN,TOTAL 0.5 mg/dL (0.2-1.3); BLOOD UREA NITROGEN 14 mg/dL (7-20); CALCIUM 10.1 mg/dL (8.4-10.2); CARBON DIOXIDE 31 mmol/L (22-30); CHLORIDE 104 mmol/L (98-107); CREATINE KINASE 170 U/L (30-135); CREATININE RESULT 0.62 mg/dL (0.52-1.25); GLUCOSE 100 mg/dL (75-110); MAGNESIUM 2.3 mg/dL (1.6-2.3); POTASSIUM 3.9 mmol/L (3.6-5.0); SODIUM 145.5 mmol/L (137-145); TOTAL PROTEIN 8.5 g/dL (6.3-8.2)
--- NOTE | 2016-10-15 13:45 | RADIOLOGY REPORT (SQ) ---
EXAM DESCRIPTION: CT HEAD WITHOUT COMPLETED DATE/TIME: 10/15/2016 1:09 pm REASON FOR STUDY: dizziness COMPARISON: None. TECHNIQUE: Axial images acquired through the brain without intravenous contrast. Images reviewed wi th bone, brain and subdural windows. Images stored on PACS. All CT scanners at this facility use dose modulation, iterative reconstruction, and/or weight based d osing when appropriate to reduce radiation dose to as low as reasonably achievable (ALARA). [facility]: Dose Right [facility]: CareDose [facility]: Dose Right [facility]: Teradose 4D [facility]: Smart InCorta RADIATION DOSE: Up-to-date CT equipment and radiation dose reduction techniques were employed. CTDIv ol: 64.6 mGy. DLP: 1163 mGy-cm. mGy. LIMITATIONS: None. FINDINGS: VENTRICLES: Normal size and contour. CEREBRUM: Spotty bifrontal and biparietal white matter low attenuation from small vessel disease. No CT evidence of acute large territory ischemic change, acute intracranial hemorrhage, mass effect, or midline shift. CEREBELLUM: No masses. No hemorrhage. No alteration of density. No evidence for acute infarction. EXTRAAXIAL SPACES: No fluid collections. No masses. ORBITS AND GLOBE: No intra- or extraconal masses. Normal contour of globe without masses. CALVARIUM: No fracture. PARANASAL SINUSES: No fluid or mucosal thickening. SOFT TISSUES: No mass or hematoma. OTHER: No other significant finding. IMPRESSION: Spotty chronic white matter disease. No acute findings TECHNICAL DOCUMENTATION: JOB ID: [id number] Quality ID # [id number]: Final reports with documentation of one or more dose reduction techniques (e.g., Au tomated exposure control, adjustment of the mA and/or kV according to patient size, use of iterative reconstruction technique) 2010 [employer]- All Rights Reserved
--- NOTE | 2016-10-15 14:01 | RADIOLOGY REPORT (SQ) ---
EXAM DESCRIPTION: CHEST PA/LAT COMPLETED DATE/TIME: 10/15/2016 1:16 pm REASON FOR STUDY: dizziness COMPARISON: 08/11/2016 EXAM PARAMETERS: NUMBER OF VIEWS: two views TECHNIQUE: Digital Frontal and Lateral radiographic views of the chest acquired. RADIATION DOSE: NA LIMITATIONS: none FINDINGS: LUNGS AND PLEURA: No opacities, masses or pneumothorax. No pleural effusion. MEDIASTINUM AND HILAR STRUCTURES: No masses or contour abnormalities. HEART AND VASCULAR STRUCTURES: Heart normal size. No evidence for failure. BONES: No acute findings. HARDWARE: None in the chest. OTHER: No other significant finding. IMPRESSION: NO SIGNIFICANT RADIOGRAPHIC FINDING IN THE CHEST. TECHNICAL DOCUMENTATION: JOB ID: [id number] [employer]- All Rights Reserved
[2016-10-15 14:29] LABS: CREATINE KINASE MB 1.88 ng/mL (<4.55)
[2016-10-15 14:30] LABS: TROPONIN I < 0.012 ng/mL
[2016-10-15 14:32] LABS: APPEARANCE,URINE CLEAR; BILIRUBIN,URINE NEGATIVE (NEGATIVE); GLUCOSE, URINE NEGATIVE (NEGATIVE); KETONES,URINE NEGATIVE (NEGATIVE); LEUKOCYTE ESTERASE,URINE NEGATIVE (NEGATIVE); NITRITE,URINE NEGATIVE (NEGATIVE); PROTEIN,URINE NEGATIVE (NEGATIVE); URINE SPECIFIC GRAVITY 1.004; UROBILINOGEN,URINE NEGATIVE mg/dL (<2.0)
--- NOTE | 2016-10-15 15:49 | ER Document Report ---
ED General - General Chief Complaint: Dizziness Stated Complaint: DIZZINESS Time Seen by Provider: 10/15/16 12:44 TRAVEL OUTSIDE OF THE [place] IN LAST 30 DAYS: No - HPI Patient complains to provider of: Dizziness Notes: Coming in for evaluation of dizziness. Patient states he had a colonoscopy on Tuesday if after the prep experience dizziness worsened today. Patient is she has been drinking water. Patient with dizziness especially when she looks down. Patient denies any head pain chest pain abdominal pain nausea vomiting diarrhea associated with the dizziness. Upon my evaluation patient is hypertensive however in no obvious distress. Patient states today that her stomach blood pressure has been elevated - Related Data Allergies/Adverse Reactions: codeine [Codeine] Allergy (Severe, Verified 10/11/16 09:46) Anaphylaxis Penicillins Allergy (Intermediate, Verified 10/11/16 09:46) BLISTERS, PALMS OF HANDS AND SOLES OF FEET TURNED RED Sulfa (Sulfonamide Antibiotics) Allergy (Mild, Verified 10/11/16 09:46) RASH Past Medical History - Social History Smoking Status: Unknown if Ever Smoked Family History: None, Reviewed & Not Pertinent - Past Medical History Cardiac Medical History: Reports: Hx Coronary Artery Disease - [place], Hx Hypercholesterolemia, Hx Hypertension Denies: Hx Heart Attack Pulmonary Medical History: Denies: Hx Asthma, Hx Bronchitis, Hx COPD, Hx Pneumonia Neurological Medical History: Denies: Hx Cerebrovascular Accident, Hx Seizures Endocrine Medical History: Reports: Hx Diabetes Mellitus Type 2 Renal/ Medical History: Denies: Hx Peritoneal Dialysis GI Medical History: Denies: Hx Hepatitis, Hx Hiatal Hernia, Hx Ulcer Musculoskeltal Medical History: Reports Hx Arthritis - GENERALIZED Infectious Medical History: Denies: Hx Hepatitis Past Surgical History: Reports: Hx Hysterectomy. Denies: Hx Mastectomy, Hx Open Heart Surgery, Hx Pacemaker - Immunizations Hx Diphtheria, Pertussis, Tetanus Vaccination: No Hx Pneumococcal Vaccination: 10/16/14 Review of Systems - Review of Systems Constitutional: No symptoms reported EENT: No symptoms reported Cardiovascular: No symptoms reported Respiratory: No symptoms reported Gastrointestinal: No symptoms reported Genitourinary: No symptoms reported Female Genitourinary: No symptoms reported Musculoskeletal: No symptoms reported Skin: No symptoms reported Hematologic/Lymphatic: No symptoms reported Neurological/Psychological: Other - Dizziness -: Yes All other systems reviewed and negative Physical Exam - Vital signs Vitals: Resp Pulse Ox 22 H 98 10/15/16 12:17 10/15/16 12:17 Interpretation: Normal - General General appearance: Appears well, Alert - HEENT Head: Normocephalic, Atraumatic Eyes: Normal Pupils: PERRL - Respiratory Respiratory status: No respiratory distress Chest status: Nontender Breath sounds: Normal Chest palpation: Normal - Cardiovascular Rhythm: Regular Heart sounds: Normal auscultation Murmur: No - Abdominal Inspection: Normal Distension: No distension Bowel sounds: Normal Tenderness: Nontender Organomegaly: No organomegaly - Back Back: Normal, Nontender - Extremities General upper extremity: Normal inspection, Nontender, Normal color, Normal ROM , Normal temperature General lower extremity: Normal inspection, Nontender, Normal color, Normal ROM , Normal temperature, Normal weight bearing. No: Maki's sign - Neurological Neuro grossly intact: Yes Cognition: Normal Orientation: AAOx4 [place] Coma Scale Eye Opening: Spontaneous [place] Coma Scale Verbal: Oriented [place] Coma Scale Motor: Obeys Commands [place] Coma Scale Total: 15 Speech: Normal Motor strength normal: LUE, RUE, LLE, RLE Sensory: Normal - Psychological Associated symptoms: Normal affect, Normal mood - Skin Skin Temperature: Warm Skin Moisture: Dry Skin Color: Normal Course - Re-evaluation Re-evalutation: 10/15/16 20:23 Patient orthostatics showed increased heart rate when standing up and symptoms reproduced. Lab work that showed elevated sodium likely due to recent bowel prep and dehydration. Patient was given IV fluids with improvement of symptoms. Patient's blood pressure still does remain elevated however patient states they prior she had blood pressures 120 systolically. Explained this time not treat her blood pressure she had recently had normal blood pressure she follow-up primary care physician for evaluation of her hypertension. Patient will be discharged home with Antivert as well as instructions for hydration. - Vital Signs Vital signs: Temp Pulse Resp BP Pulse Ox 98.3 F 68 18 138/77 H 100 10/15/16 16:01 10/15/16 14:32 10/15/16 16:01 10/15/16 16:01 10/15/16 16:01 - Laboratory Result Diagrams: 10/15/16 12:26 10/15/16 12:26 Laboratory results interpreted by me: 10/15/16 12:26 Sodium 145.5 H Carbon Dioxide 31 H Creatine Kinase 170 H Total Protein 8.5 H Discharge - Discharge Clinical Impression: Dehydration, Dizziness Hypertension Qualifiers: Hypertension type: essential hypertension Qualified Code(s): I10 - Essential ( primary) hypertension Condition: Good Disposition: HOME, SELF-CARE Instructions: Meclizine ([facility]), Vertigo ([facility]), Dizziness ([facility]) Additional Instructions: Follow-up with your primary care physician in approximately 2 weeks. I would highly recommend taking the medication meclizine as prescribed for the next 3 days. Please continue to monitor your blood pressure continue to record this and report this to your doctor Prescriptions: Meclizine HCl [Antivert 25 mg Tablet] 25 mg PO TID PRN #21 tablet PRN Reason: Referrals: MEGAN VENCES MD [Primary Care Provider] - Follow up as needed
[2016-10-15 16:12] VITALS: BP 138/77
--- NOTE | 2016-10-15 20:43 | EKG REPORT ---
SEVERITY:- ABNORMAL ECG - SINUS RHYTHM RBBB AND LPFB : Confirmed by: Cecily Kim 15-Oct-2016 20:42:45
== END 2016-10-15 16:15 | disposition home or self-care (01) ==
LOC: ER 12:09
DX: E86.0 Dehydration (principal); I10 Essential (primary) hypertension; R42 Dizziness and giddiness; Z98.890 Other specified postprocedural states; Z88.0 Allergy status to penicillin; Z88.2 Allergy status to sulfonamides; Z87.892 Personal history of anaphylaxis; Z88.5 Allergy status to narcotic agent; I25.10 Atherosclerotic heart disease of native coronary artery without angina pectoris; E11.9 Type 2 diabetes mellitus without complications
CPT/HCPCS: 93005; 99285; 96360; 36415; 82553; 82550; 83735; 85025; 85610; 80053; 81001; 84484; 71020; 70450; 93010; A9270; J7030

== ENCOUNTER → 2018-09-29 | Outpatient (CLI) | payer MEDICARE, OTHER ==
--- NOTE | 2018-09-29 14:14 | WOMENS IMAGING REPORT ---
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 LIMITATIONS: None. FINDINGS: LUMBAR SPINE: The bone mineral density (BMD) measured from L1-L4 in the AP projection correlates with a T-score of -0.2, which is normal as defined by the World Health Organization. HIP: The bone mineral density (BMD) measured in the left hip correlates with a T-score of -1.8, which is o steopenia as defined by the World Health Organization. IMPRESSION: 1. LUMBAR SPINE: NORMAL. 2. HIP: OSTEOPENIA. COMMENT: The World Health Organization defines low BMD as follows: T-score: Normal: Greater than -1.0 Osteopenia: Between -1.0 and -2.5 Osteoporosis: Less than -2.5 without fractures Established osteoporosis: Less than -2.5 with fractures In general, you may wish to consider: Diagnosis Treatment Follow-up DEXA Normal BMD Prevention 2-3 years Osteopenia Prevention/Therapy 1-2 years Osteoporosis Therapy Yearly TECHNICAL DOCUMENTATION: JOB ID: [id number]- All Rights Reserved Reading location - IP/workstation name: [email or web address]
== END ==
LOC: WI 13:14
PROVIDERS: ATTEND Family Medicine
DX: M81.0 Age-related osteoporosis without current pathological fracture (principal)
CPT/HCPCS: 77080

== ENCOUNTER 2019-07-29 22:00 | Emergency (ER) | payer MEDICARE, OTHER ==
[2019-07-29] MEDS ORDERED: NORMAL SALINE 1000 ML 1,000 ML IV ONE (22:43)
--- NOTE | 2019-07-29 23:06 | ER Document Report ---
ED General - General Chief Complaint: Fever Stated Complaint: FEVER/COUGH Time Seen by Provider: 07/29/19 22:06 Primary Care Provider: MEGAN VENCES MD [Primary Care Provider] - Follow up as needed Mode of Arrival: Ambulatory Information source: Patient Notes: 74-year-old female patient presenting to the emergency department with 2-day history of dry cough, fever, fatigue and sore throat. Patient denies any recent travel or exposure to any known COVID-19 patients. She does report that her grandchild who was recently with her had similar symptoms. Patient denies any shortness of breath. She reports T-max at home of 102. She is tachycardic upon arrival. TRAVEL OUTSIDE OF THE [place] IN LAST 30 DAYS: No - Related Data Allergies/Adverse Reactions: codeine [Codeine] Allergy (Severe, Verified 10/11/16 09:46) Anaphylaxis Penicillins Allergy (Intermediate, Verified 10/11/16 09:46) BLISTERS, PALMS OF HANDS AND SOLES OF FEET TURNED RED Sulfa (Sulfonamide Antibiotics) Allergy (Mild, Verified 10/11/16 09:46) RASH Home Medications: Lisinopril/HCTZ (20/12.5). Amaryl (1 mg). Zocor (20 mg) Past Medical History - General Information source: Patient - Social History Smoking Status: Never Smoker Family History: None, Reviewed & Not Pertinent Patient has suicidal ideation: No Patient has homicidal ideation: No - Past Medical History Cardiac Medical History: Reports: Hx Coronary Artery Disease - [place], Hx Hypercholesterolemia, Hx Hypertension Denies: Hx Heart Attack Pulmonary Medical History: Denies: Hx Asthma, Hx Bronchitis, Hx COPD, Hx Pneumonia Neurological Medical History: Denies: Hx Cerebrovascular Accident, Hx Seizures Endocrine Medical History: Reports: Hx Diabetes Mellitus Type 2 Renal/ Medical History: Denies: Hx Peritoneal Dialysis GI Medical History: Denies: Hx Hepatitis, Hx Hiatal Hernia, Hx Ulcer Musculoskeletal Medical History: Reports Hx Arthritis - GENERALIZED Infectious Medical History: Denies: Hx Hepatitis Past Surgical History: Reports: Hx Hysterectomy. Denies: Hx Mastectomy, Hx Open Heart Surgery, Hx Pacemaker - Immunizations Hx Diphtheria, Pertussis, Tetanus Vaccination: No Hx Pneumococcal Vaccination: 10/16/14 Review of Systems - Review of Systems Constitutional: Chills, Fever EENT: Throat pain Musculoskeletal: Muscle pain -: Yes All other systems reviewed and negative Physical Exam - Vital signs Vitals: Temp Pulse Resp BP Pulse Ox 99.5 F 118 H 118 H 109/78 96 07/29/19 22:06 07/29/19 22:06 07/29/19 22:06 07/29/19 22:06 07/29/19 22:06 - Notes Notes: PHYSICAL EXAMINATION: GENERAL: Well-appearing, well-nourished and in no acute distress. HEAD: Atraumatic, normocephalic. EYES: Pupils equal round and reactive to light, extraocular movements intact, conjunctiva are normal. ENT: Nares patent, oropharynx clear without exudates. Moist mucous membranes. NECK: Normal range of motion, supple without lymphadenopathy LUNGS: Breath sounds clear to auscultation bilaterally and equal. No wheezes rales or rhonchi. HEART: Regular rate and rhythm without murmurs ABDOMEN: Soft, nontender, nondistended abdomen. No guarding, no rebound. No masses appreciated. Female : deferred Musculoskeletal: Normal range of motion, no pitting or edema. No cyanosis. NEUROLOGICAL: Cranial nerves grossly intact. Normal speech, normal gait. Normal sensory, motor exams PSYCH: Normal mood, normal affect. SKIN: Warm, Dry, normal turgor, no rashes or lesions noted. Course - Re-evaluation Re-evalutation: 07/29/19 23:05 Patient appears well, nontoxic, her heart rate was 118 on arrival. Work-up initiated. Nursing staff brought to my attention that when they hooked patient up to the EKG her heart rate was ranging from 120-140s. She has no history of irregular heart rate. She will be moved from pod 5 to the main side. 07/30/19 00:15 Laboratory 07/29/19 07/29/19 07/29/19 23:00 23:00 23:14 WBC 18.3 H RBC 3.89 Hgb 12.7 Hct 37.1 MCV 95 MCH 32.7 MCHC 34.3 RDW 13.1 Plt Count 210 Lymph % (Auto) 9.1 L [place] % (Auto) 8.2 Eos % (Auto) 0.0 Baso % (Auto) 0.1 Absolute Neuts (auto) 15.1 H Absolute Lymphs (auto) 1.7 Absolute Monos (auto) 1.5 H Absolute Eos (auto) 0.0 Absolute Basos (auto) 0.0 Seg Neutrophils % 82.6 H Sodium Potassium Chloride Carbon Dioxide Anion Gap BUN Creatinine Est GFR ( Amer) Est GFR (MDRD) Non-Af Glucose Calcium Total Bilirubin Direct Bilirubin Neonat Total Bilirubin Neonat Direct Bilirubin Neonat Indirect Bili AST ALT Alkaline Phosphatase Total Protein Albumin Influenza A (Rapid) NEGATIVE Influenza B (Rapid) NEGATIVE Group A Strep Rapid NEGATIVE 07/29/19 23:14 WBC RBC Hgb Hct MCV MCH MCHC RDW Plt Count Lymph % (Auto) [place] % (Auto) Eos % (Auto) Baso % (Auto) Absolute Neuts (auto) Absolute Lymphs (auto) Absolute Monos (auto) Absolute Eos (auto) Absolute Basos (auto) Seg Neutrophils % Sodium 133.6 L Potassium 4.0 Chloride 97 L Carbon Dioxide 31 H Anion Gap 6 BUN 15 Creatinine 0.68 Est GFR ( Amer) > 60 Est GFR (MDRD) Non-Af > 60 Glucose 117 H Calcium 9.0 Total Bilirubin 0.5 Direct Bilirubin 0.0 Neonat Total Bilirubin Not Reportable Neonat Direct Bilirubin Not Reportable Neonat Indirect Bili Not Reportable AST 61 H ALT 54 H Alkaline Phosphatase 89 Total Protein 7.4 Albumin 3.9 Influenza A (Rapid) Influenza B (Rapid) Group A Strep Rapid Chest X-Ray 07/29/19 23:01 IMPRESSION: Patchy opacity at the right lung base which may represent infection. Patient has a leukocytosis with a white blood count of 18.3. Labs otherwise unremarkable. Influenza and strep negative. Chest x-ray shows a patchy opacity at the right lung base. Patient's heart rate has come down to 105, sinus tachycardia on the monitor. She has not had any episodes of hypoxia or tachypnea. EKG reviewed, shows a sinus tachycardia, rate 112, QTc 448, right bundle branch block present, unchanged from previous EKG. COVID-19 testing pending. Patient has been monitored in the emergency department for several hours. Her heart rate has been staying around 105. She appears well, nontoxic. She has not had any hypoxia or tachypnea. She will be discharged home on oral antibiotics and Tessalon Perles with strict ED return precautions. Patient is agreeable to this plan. - Vital Signs Vital signs: Temp Pulse Resp BP Pulse Ox 101.2 F H 118 H 28 H 157/79 H 97 07/30/19 02:21 07/29/19 22:06 07/30/19 02:21 07/30/19 02:21 07/30/19 02:21 - Laboratory Result Diagrams: 07/29/19 23:14 07/29/19 23:14 Laboratory results interpreted by me: 07/29/19 07/29/19 07/30/19 23:14 23:14 00:27 WBC 18.3 H Lymph % (Auto) 9.1 L Absolute Neuts (auto) 15.1 H Absolute Monos (auto) 1.5 H Seg Neutrophils % 82.6 H Sodium 133.6 L Chloride 97 L Carbon Dioxide 31 H Glucose 117 H AST 61 H ALT 54 H Urine Ketones 20 H Ur Leukocyte Esterase TRACE H Discharge - Discharge Clinical Impression: Suspected COVID-19 virus infection Pneumonia Qualifiers: Pneumonia type: due to unspecified organism Laterality: right Lung location: lower lobe of lung Qualified Code(s): J18.9 - Pneumonia, unspecified organism Fever Qualifiers: Fever type: unspecified Qualified Code(s): R50.9 - Fever, unspecified Condition: Stable Disposition: HOME, SELF-CARE Additional Instructions: You have been diagnosed with a pneumonia. It is very important that you take all of your antibiotics until they are gone even if you are feeling better. Please return to the emergency department immediately if you began having worsening shortness of breath, become confused, have worsening pain, pass out, have persistent vomiting that prevents you from being able to drink fluids for more than 12 hours, or have any other symptoms that are worrisome to you. Please follow-up with your primary care doctor in the next 1-2 days. Prescriptions: Benzonatate [Tessalon Perles 100 mg Capsule] 1 - 2 tab PO Q8HP PRN #30 capsule PRN Reason: Levofloxacin [Levaquin 750 mg Tablet] 750 mg PO DAILY #7 tablet Referrals: MEGAN VENCES MD [Primary Care Provider] - Follow up as needed
[2019-07-29 23:25] LABS: ABSOLUTE LYMPHOCYTES (AUTO) 1.7 10^3/uL (0.5-4.7); ABSOLUTE MONOCYTES (AUTO) 1.5 10^3/uL (0.1-1.4); ABSOLUTE NEUT (AUTO) 15.1 10^3/uL (1.7-8.2); BASOPHILS % (AUTO) 0.1 % (0-2); HEMATOCRIT 37.1 % (36.0-47.0); HEMOGLOBIN 12.7 g/dL (12.0-15.5); LYMPHOCYTES % (AUTO) 9.1 % (13-45); MEAN CORPUSCULAR HEMOGLOBIN 32.7 pg (27.0-33.4); MEAN CORPUSCULAR HGB CONC 34.3 g/dL (32.0-36.0); MEAN CORPUSCULAR VOLUME 95 fl (80-97); MONOCYTES % (AUTO) 8.2 % (3-13); PLATELET COUNT 210 10^3/uL (150-450); RED BLOOD COUNT 3.89 10^6/uL (3.72-5.28); RED CELL DISTRIBUTION WIDTH 13.1 % (11.5-14.0); SEGMENTED NEUTROPHILS % (AUTO) 82.6 % (42-78); TOTAL CELLS COUNTED % (AUTO) 100 %; WHITE BLOOD COUNT 18.3 10^3/uL (4.0-10.5)
--- NOTE | 2019-07-29 23:31 | RADIOLOGY REPORT (SQ) ---
XR CHEST 1 VIEW EXAM DATE: 07/29/2019 11:01 PM CDT HISTORY: Fever/cough. COMPARISON: 10/15/2016 FINDINGS: The heart size is within normal limits. There is no pulmonary vascular congestion. There is a patchy opacity in the medial right lung base. No pleural effusions or pneumothorax. No acute bony findings are seen. IMPRESSION: Patchy opacity at the right lung base which may represent infection.
[2019-07-29 23:34] LABS: A TYPE INFLUENZA AG NEGATIVE (NEGATIVE); B INFLUENZA AG NEGATIVE (NEGATIVE)
[2019-07-29 23:47] LABS: ALBUMIN 3.9 g/dL (3.5-5.0); ALKALINE PHOSPHATASE 89 U/L (38-126); ANION GAP 6 (5-19); ASPARTATE AMINO TRANSFERASE 61 U/L (14-36); BILIRUBIN,TOTAL 0.5 mg/dL (0.2-1.3); BLOOD UREA NITROGEN 15 mg/dL (7-20); CARBON DIOXIDE 31 mmol/L (22-30); CHLORIDE 97 mmol/L (98-107); GLUCOSE 117 mg/dL (75-110); TOTAL PROTEIN 7.4 g/dL (6.3-8.2)
[2019-07-29] MEDS ORDERED: KETOROLAC TROMETHAMINE INJ/PF 30 MG/1 ML SDV IV ONE (23:53)
[2019-07-30 00:49] LABS: APPEARANCE,URINE CLEAR; BILIRUBIN,URINE NEGATIVE (NEGATIVE); COLOR,URINE STRAW; GLUCOSE, URINE NEGATIVE (NEGATIVE); KETONES,URINE 20 mg/dL (NEGATIVE); LEUKOCYTE ESTERASE,URINE TRACE (NEGATIVE); NITRITE,URINE NEGATIVE (NEGATIVE); PROTEIN,URINE NEGATIVE (NEGATIVE); URINE SPECIFIC GRAVITY 1.009; UROBILINOGEN,URINE NEGATIVE mg/dL (<2.0)
--- NOTE | 2019-07-30 01:59 | EKG REPORT ---
SEVERITY:- ABNORMAL ECG - SINUS TACHYCARDIA RBBB AND LPFB : Confirmed by: Jenifer Gilliland MD 30-Jul-2019 01:58:51
[2019-07-30] MEDS ORDERED: LEVOFLOXACIN 750 MG TABLET PO ONE (02:06)
[2019-07-30] MEDS ORDERED: ACETAMINOPHEN 325 MG TABLET PO ONE (02:25)
[2019-07-30] MEDS ORDERED: IBUPROFEN 600 MG TABLET PO ONE (02:25)
[2019-07-30 02:26] VITALS: BP 157/79
--- NOTE | 2019-07-30 07:28 | EKG REPORT ---
SEVERITY:- ABNORMAL ECG - SINUS TACHYCARDIA RBBB AND LPFB : Confirmed by: Rl Prakash MD 30-Jul-2019 07:27:42
== END 2019-07-30 02:41 | disposition home or self-care (01) ==
LOC: ER 22:00
DX: J18.9 Pneumonia, unspecified organism (principal); Z20.828 Contact with and (suspected) exposure to other viral communicable diseases; R50.9 Fever, unspecified; R05 Cough; J02.9 Acute pharyngitis, unspecified; R00.0 Tachycardia, unspecified; M79.10 Myalgia, unspecified site; I25.10 Atherosclerotic heart disease of native coronary artery without angina pectoris; I10 Essential (primary) hypertension; E78.00 Pure hypercholesterolemia, unspecified; E11.9 Type 2 diabetes mellitus without complications; Z79.84 Long term (current) use of oral hypoglycemic drugs; Z79.899 Other long term (current) drug therapy; Z87.892 Personal history of anaphylaxis; Z88.6 Allergy status to analgesic agent; Z88.5 Allergy status to narcotic agent; Z88.0 Allergy status to penicillin; Z88.2 Allergy status to sulfonamides
CPT/HCPCS: 93005 ×2; 99284; 96361; 96374; 36415; 87040; 87070; 87880; 83605; 85025; 87635; 80053; 81001; 84484; 87804; 71045; 93010 ×2; A9270 ×3; J1885; J7030